=== PATIENT | female | born 1950 | race Caucasian/White ===

== ENCOUNTER 2019-03-17 11:49 | Inpatient (IN) | payer OTHER ==
[~2019-03-17] VITALS: Ht 167.6 cm; Wt 69.4 kg
[2019-03-17 11:59] VITALS: Ht 167.6 cm; Wt 69.4 kg
--- NOTE | 2019-03-17 13:01 | NUR ---
REPORT GIVEN TO SHON MILLER
--- NOTE | 2019-03-17 13:36 | NUR ---
WOUND CULTURE SENT TO LAB.
[2019-03-17 13:38] LABS: BASOPHIL % 0.3 % (0-2); PLATELET COUNT 334 x10^3mcL (130-400); RED CELL DISTRIBUTION WIDTH 13.5 % (11.5-14.5)
[2019-03-17 13:39] LABS: CARBON DIOXIDE 24.5 mmol/L (21-32); CREATININE SERUM 1.1 mg/dL (0.6-1.0); POTASSIUM SERUM 4.5 mmol/L (3.5-5.1)
--- NOTE | 2019-03-17 13:46 | NUR ---
POTOS TAKEN OF WOUND AND PLACED IN CHART.
[2019-03-17 13:49] LABS: BILIRUBIN TOTAL 0.4 mg/dL (0.20-1.00); TOTAL PROTEIN, SERUM 7.7 g/dL (6.4-8.2)
[2019-03-17 14:00] LABS: ALBUMIN 3.2 g/dL (3.4-5.0)
[2019-03-17 14:01] LABS: C REACTIVE PROTEIN 14.6 mg/dL (<=0.9)
--- NOTE | 2019-03-17 14:20 | NUR ---
PT IN GURNEY RESP E/U WITH EYES CLOSED. BLANKET GIVEN FOR COMFORT.
[2019-03-17 14:55] LABS: ERYTHROCYTE SED RATE 74 mm/hr (0-30)
--- NOTE | 2019-03-17 15:22 | NUR ---
RESIDENTS AT BEDSIDE. NOTIFIED THEM BLOOD CULTURES ALREADY HAVE BEEN DRAWN AND IV ABX GIVEN PER ER MD ORDER. PER RESIDENT WANTS BLOOD CULTURES DRAWN STILL.
[2019-03-17 15:29] LABS: MAGNESIUM 1.9 mg/dL (1.8-2.4); PHOSPHOROUS 3.3 mg/dL (2.5-4.9)
[2019-03-17] MEDS ORDERED: ASPIR 8181 MG PO (15:38)
[2019-03-17] MEDS ORDERED: CEPHALEXIN500 MG PO (15:39)
[2019-03-17] MEDS ORDERED: GLIPIZIDE10 M2 PO (15:39)
[2019-03-17] MEDS ORDERED: METFORMIN HYD1000 M2 PO (15:39)
[2019-03-17] MEDS ORDERED: LISINOPRIL10 MG PO (15:39)
--- NOTE | 2019-03-17 15:48 | NUR ---
REPORT GIVEN TO RN GASTON TO ASSUME CARE.
[2019-03-17 17:40] VITALS: BP 112/65
--- NOTE | 2019-03-17 18:00 | NUR ---
PT RESTING IN BED, AOX4, RESP E/U ON RA. DENIES PAIN AT THIS TIME, REQUESTING FOR FOOD, REMINDED PT SHE IS ON NPO FOR POSSIBLE PROCEDURE. PT COMPLIANT W/ INSTRUCTIONS. IV TO LAC W/ NO SIGNS OF INFILTRATION, IVF INFUSING WELL. BED IN LOWEST POSITION AND CALL LIGHT WITHIN REACH. WILL ENDORSE TO ONCOMING NURSE.
--- NOTE | 2019-03-17 19:28 | NUR ---
RECEIVED PT FROM ER. PT AOX4, RESP E/U ON RA, AMBULATORY. DENIES PAIN AT THIS TIME. W/ WOUND TO R FOOT, GAUZE DRESSING IN PLACE SECURED BY DESI ROGERS. VS FOLLOWS: T: 98, HR: 98, RR: 20, BP: 112/65, O2: 95%. IV TO LACE W/ NO ERYTHEMA OR EDEMA, SALINE LOCKED AT THIS TIME. ON NPO DIET. BED IN LOWEST POSITION AND CALL LIGHT WITHIH REACH. WILL CONTINUE TO MONITOR.
--- NOTE | 2019-03-17 20:04 | NUR ---
PATIENT RECEIVED AWAKE, ALERT, ORIENTED X4 IN BED. YAKUT SPEAKING. RESPIRATION EVEN AND UNLABORED, ON ROOM. ONGOING 0.9% NS AT 100 CC/HR INFUSING WELL AT THE LEFT AC. INFECTED RIGHT FOOT WOUND COVERED WITH DRESSING WITH OLD BLOOD. DENIES PAIN AT THIS TIME. VOIDING FREELY WITHOUT DIFFICULTY. AMBULATORY. WILL CONTINUE TO MONITOR.
[2019-03-17 21:28] VITALS: BP 100/54
[2019-03-18 05:21] VITALS: BP 93/50
--- NOTE | 2019-03-18 05:39 | NUR ---
PATIENT DOZING ON AND OFF IN BED. RESPIRATION EVEN AND UNLABORED, ON ROOM AIR. DENIES PAIN AT THIS TIME. IV SITE TO LEFT AC NO SIGN OF INFILTRATION. DRESSING TO RIGHT FOOT COVERED IN PLACED WITH OLD BLOOD. ON NPO. ASSISTED WITH NEEDS. SAFETY OBSERVED. PLACED BED IN THE LOWEST POSITION. PLACED CALL LIGHT WITHIN REACH AT ALL TIMES.
[2019-03-18 06:43] LABS: microscopic required? YES; urine erythrocyte NEGATIVE (NEGATIVE)
[2019-03-18 07:23] LABS: BASOPHIL % 0.1 % (0-2); PLATELET COUNT 278 x10^3mcL (130-400); RED CELL DISTRIBUTION WIDTH 13.5 % (11.5-14.5)
[2019-03-18 07:28] LABS: CALCIUM 8.4 mg/dL (8.5-10.1); CARBON DIOXIDE 27.4 mmol/L (21-32); CREATININE SERUM 1.3 mg/dL (0.6-1.0); POTASSIUM SERUM 4.3 mmol/L (3.5-5.1)
[2019-03-18 09:17] VITALS: BP 96/54
--- NOTE | 2019-03-18 10:28 | NUR ---
AT 0710 - RECEIVED PATIENT FROM NIGHT NURSE. AWAKE, ALERT AND ORIENTED. DENIES ANY PAIN. IV INFUSING NS AT 75 ML/H. NPO FOR POSSIBLE PROCEDURE. AT 0830 - CALL PLACED FOR DR HARDY TO SEE IF PATIENT IS ALLOWED TO EAT. PATIENT C/O HUNGER. AT 0910 - DR DUNBAR AT BEDSIDE FOR DEBRIDEMENT PROCEDURE. SIGNED CONSENT FOR PROCEDURE OBTAINED BY DOCTOR. AT 0915 - DEBRIDEMENT OF R 4TH TOE DONE BY DR DUNBAR AT BEDSIDE. WOUND CULTURE TAKEN. DREESING APPLIED BY DR AND WOUND ORDERS RECEIVED. WOUND CULTURE DELIVERED TO LAB. PATIENT C/O PAIN. MEDICATED WITH NORCO PER EMAR. DIET ORDER RECEIVED. AT 1010 - RESTING QUIETLY. REPORTS THAT PAIN HAS RESOLVED.
--- NOTE | 2019-03-18 13:55 | NUR ---
AT 1330 - RECEIVED CALL FROM LAB WITH VANCOMYCIN THROUGH OF 17. CALLEDPHARMACY AND SPOKE WITH PHARMACIST REGARDING LEVEL. ADMINISTER NEXT DOSE SCHEDULED.
--- NOTE | 2019-03-18 14:35 | NUR ---
AT 1350 - MEDICATED WITH ZOFRAN PER EMAR FOR C/O PERSISTANT NAUSEA AND VOMITING X 1.
[2019-03-18 16:57] VITALS: BP 96/55
--- NOTE | 2019-03-18 19:02 | NUR ---
VSS. AFEBRILE. NO FURTHER C/O NAUSEA OR VOMITING. ABLE TO TOLERATE PO DIET. IV INFUSING NS AT 100 ML/HR. DRESSING TO LEFT FOOT REMAINS DRY AND INTACT. WILL ENDORSE CARE TO NIGHT NURSE.
--- NOTE | 2019-03-18 19:58 | NUR ---
RECEIVED AWAKE IN BED WATCHING TV. , ALERT AND VERBALLY RESPONSIVE. SKIN WARM AND DRY TO TOUCH WITH DEBRIDEMENT RIGHT 4THN TOE WITH DRESSING INTACT , NO ACTIVE BLEEDING NOTED. PAIN LEVEL TOLERABLE AT THIS TIME, PAIN MEDICATION WAS GIVEN BY AM NURSE WITH GOOD EFECT. WILL CONTINUE TO MONITOR.
[2019-03-18 20:21] VITALS: BP 118/61
--- NOTE | 2019-03-18 21:30 | NUR ---
BLOOD TCWVA=639DM/DL, REFUSED HRI COVERAGE PER PROTOCOL, PT STATED SHE WILL NOT TAKE ANY SNACK . ORAL FLUIDS TAEN AND WELL TOLERATED.
--- NOTE | 2019-03-18 21:52 | NUR ---
QAWB=960.6F, ALSO C/O MIILD HEADACHE ON SCALE 3/10, TYLEMOL 650MG PO PRN MEDICATION. COOLING MEASURES RENDERED. WILL REASSESS EFECTIVENESS.
[2019-03-18 23:52] VITALS: BP 100/60
--- NOTE | 2019-03-18 23:52 | NUR ---
TEMP RECHCEK 97.8F. PAIN LEVEL 0/10
--- NOTE | 2019-03-19 01:53 | NUR ---
CONTINUES ON ATB IVPB ORDERED. NO ADVERSE REACTION NOTED FROM ATB THERAPY.
--- NOTE | 2019-03-19 03:05 | NUR ---
C/O HEADACHE ON SCAL 11/02, TYLENOL 650MG PO PRN MEDICATION. ORAL FLUIDS TOLERATED WELL. NO S/S OF DIFFICULTY IN SWALLOWING.
[2019-03-19 05:40] VITALS: BP 96/48
--- NOTE | 2019-03-19 06:15 | NUR ---
BLOOD PWGAM=214EW/DL, REFUSED HRI INSULIN COVERGE. DENIES ANY HEADACHE AT THIS TIME. AMBUALTED TO BATHROOM FOR PERSONAL NEEDS. KEPT CLEAN AND DRY. ALL NEEDS ATTENDED.
[2019-03-19 06:41] LABS: BASOPHIL % 0.3 % (0-2); PLATELET COUNT 244 x10^3mcL (130-400); RED CELL DISTRIBUTION WIDTH 13.4 % (11.5-14.5)
--- NOTE | 2019-03-19 07:10 | NUR ---
REPORT RCD FROM SHON NEIL. PATIENT AWAKE, ALERT, NO DISTRESS. NS 100 ML/HR TO LFA INFUSING WITHOUT COMPLICATIONS. BED LOW, CALL LIGHT WITHIN REACH. WILL MONITOR.
--- NOTE | 2019-03-19 07:40 | NUR ---
SHIFT ASSESSMENT PERFORMED AND DOCUMENTED. PATIENT REPORTS DRESSING CHANGE BY PODIATRY THIS MORNING. DRESSING IS CDI. NURSE WILL NOT REMOVE. PATIENT DENIES PAIN.
--- NOTE | 2019-03-19 08:05 | NUR ---
RCD ORDER FOR URINE CULTURE. CALLED LAB WHO REQUESTED NEW URINE SPECIMEN. PATIENT EDUCATED ON CLEAN CATCH, CLEAN HAT PLACED IN TOILET TO COLLECT URINE. PATIENT TO CALL NURSE AFTER PROVIDING SPECIMEN.
--- NOTE | 2019-03-19 08:21 | NUR ---
WOUND CARE EVALUATION NOT DONE. PT SEEN AND TREATED BY DR. DUNBAR, DIP PAINTER.
--- NOTE | 2019-03-19 09:05 | NUR ---
PATIENT URINATED IN HAT. SPECIMEN COLLECTED BY STUDENTPEE, OBSERVED BY NURSE, AND DELIVED TO LAB.
[2019-03-19 09:22] VITALS: BP 100/61
[2019-03-19 09:59] LABS: CALCIUM 8.4 mg/dL (8.5-10.1); CARBON DIOXIDE 25.9 mmol/L (21-32); CREATININE SERUM 1.3 mg/dL (0.6-1.0); POTASSIUM SERUM 4.1 mmol/L (3.5-5.1)
--- NOTE | 2019-03-19 11:20 | NUR ---
PATIENT SITTING IN CHAIR ON TELEPHONE. DENIES ANY NEEDS AT THIS TIME.
--- NOTE | 2019-03-19 12:50 | NUR ---
PATIENT COMPLAINING OF DISCOMFORT AT LFA IV SITE. SITE FOUND TO BE SWOLLEN, INFILTRATED. IV INFUSION DISCONTINUED IMMEDIATELY.
--- NOTE | 2019-03-19 14:00 | NUR ---
UNABLE TO GIVE ZOSYN AT THIS TIME DUE TO INFILTRATION OF PERIPHERAL IV TO LFA. PATIENT TO HAVE PICC LINE PLACEMENT. WILL ADMINISTER ZOSYN AFTER PICC LINE PLACED.
--- NOTE | 2019-03-19 14:03 | NUR ---
DR. HARDY IN ROOM EXPLAINING PICC LINE PROCEDURE IN BRAZILIAN TO THE PATIENT. SHE AGREED TO PROCEDURE AND SIGNED CONSENT, WITNESSED BY NURSE. IF TO LFA REMOVED DUE TO INFILTRATION PREVIOUSLY NOTED. THERE IS AN AREA OF FULLNESS AT ANTERIOR ELBOW.
--- NOTE | 2019-03-19 14:07 | NUR ---
RECEIVED VANC TROUGH FROM LAB, VALUE 22.3, HIGH. CALLED NADIRA IN PHARMACY TO INFORM. PER NADIRA, DOSE WILL BE RESCHEDULED.
--- NOTE | 2019-03-19 15:18 | NUR ---
PATIENT LYING ON LEFT SIDE, AWAKE, ALERT. NO NEEDS AT THIS TIME.
--- NOTE | 2019-03-19 15:44 | NUR ---
MEDICAL STUDENT AT BEDSIDE DOING DRESSING CHANGE. PATIENT REPORTING FEELING CHILLS, FEELS WARM TO TOUCH. TEMPERATURE TAKEN AND 100.2. COOLING MEASURES STARTED. WILL MONITOR.
--- NOTE | 2019-03-19 15:48 | NUR ---
LEAD JAVA SOFTWARE ENGINEER AT BEDSIDE EVALUATING WOUND. DISCUSSED WITH DOCTOR PATIENT'S TEMPERATURE 100.2. DR. HARDY CALLED TO BEDSIDE AND DISCUSSED NEED FOR AMPUTATION OF RIGHT 4TH TOE. PATIENT REFUSING STATING SHE HAD INFECTION PREVIOUSLY IN ANOTHER TOE WHICH CLEARED WITH ANTIBIOTICS. ASKED DR. HARDY ABOUT WEIGHT BEARING STATUS PATIENT IS AMBULATING. DOCTOR WILL EVALUATE AND WRITE ORDERS APPROPRIATE.
--- NOTE | 2019-03-19 16:09 | NUR ---
POST OP SHOE DELIVERED TO PATIENT'S ROOM. PATIENT AWARE OF SHOE AND INSTRUCTED TO WEAR WHEN AMBULATING. PATIENT AGREED.
--- NOTE | 2019-03-19 16:58 | NUR ---
RECHECKED PATIENT'S TEMPERATURE, 100.2 AT THIS TIME. WILL CONTINUE TO MONITOR.
[2019-03-19 17:05] VITALS: BP 147/69
--- NOTE | 2019-03-19 18:18 | NUR ---
PATIENT SITTING UP EATING DINNER, NO DISTRESS NOTED. NO NEEDS AT THIS TIME. RECEIVED CALL FROM "HERLINDA" PICC LINE NURSE AT 1745 WHO STATED HE WOULD ARRIVE ABOUT 1900 TO INSERT PICC LINE.
--- NOTE | 2019-03-19 19:24 | NUR ---
REPORT GIVEN TO SHON LOVE. PATIENT LYING IN BED, NO DISTRESS. PICC LINE NURSE HERLINDA TO PLACE PICC LINE THIS EVENING. DRESSING TO RIGHT FOOT CDI. NO IV ACCESS AT THIS TIME. CARE ENDORSED.
--- NOTE | 2019-03-19 19:30 | NUR ---
RECIEVED PATIENT AT START OF SHIFT A/O X4. NO SOB ON RA. PATEINT DENIES PAIN. RIGHT FOOT DRESSING IS CDI. PATIENT EDUCATED TO USE POST OP SHOE WHEN AMBULATING. NO IV ACCESS, PATIENT SCHEDULED TO HAVE PICC LINE INSERTED TODAY AT 1900. PICC NURSE HAS NOT ARRIVED YET. SAFETY AND CALL LIGHT REINFORCED. BEDSIDE TABLE WITHIN REACH.
--- NOTE | 2019-03-19 21:30 | NUR ---
HERLINDA PICC LINE NURSE IS AT BEDSIDE TO INSERT PICC LINE ON PATIENT'S RIGHT ARM.
[2019-03-19 22:05] VITALS: BP 124/61
--- NOTE | 2019-03-19 22:45 | NUR ---
XRAY AT BEDSIDE TO CONFIRM PLACEMENT OF PICC LINE.
--- NOTE | 2019-03-19 22:50 | NUR ---
PATIENT HAS FEVER OF 101.9. PATIENT GIVEN TYLENOL AND COOLING MEASURES INITIATED.
[2019-03-20] VITALS (8 sets, daily range): BP systolic 95–131; BP diastolic 54–70
--- NOTE | 2019-03-20 00:01 | NUR ---
PATIENTS TEMP HAS REDUCED TO 99.3.
--- NOTE | 2019-03-20 01:17 | NUR ---
PICC LINE PLACEMENT CONFIRMED, ORDER STATES OKAY TO USE. 0200 DOSE OF ZOSYN GIVEN AT THIS TIME WELL THE 03/19 2100 DOSE OF VANCO. PHARMACY INFORMED OF LATE VANCO ADMINISTRATION, THEY STATED THEY WOULD ADJUST THE SCHEDULE FOR THE MORNING. PATIENT MISSED 2 DOSES OF ZOSYN TOTAL WHILE WAITING FOR IV ACCESS.
[2019-03-20 06:42] LABS: CALCIUM 8.8 mg/dL (8.5-10.1); CARBON DIOXIDE 28.5 mmol/L (21-32); CREATININE SERUM 1.1 mg/dL (0.6-1.0); POTASSIUM SERUM 3.9 mmol/L (3.5-5.1)
[2019-03-20 06:49] LABS: BASOPHIL % 0.3 % (0-2); PLATELET COUNT 265 x10^3mcL (130-400); RED CELL DISTRIBUTION WIDTH 13.3 % (11.5-14.5)
--- NOTE | 2019-03-20 06:55 | NUR ---
PATIENT SLEPT WELL THROUGH THE NIGHT. PICC LINE INFUSING FLUIDS, DRESSING CDI. DRESSINGF TO RIGHT FOOT REMAINS CDI. PATIENT EXPECTED TO BE TRANSFERRED TO [facility] TODAY FOR CORRECTION ANTIBIOTICS. WILL ENDORSE CARE TO DAYSHIFT NURSE.
--- NOTE | 2019-03-20 07:15 | NUR ---
RECEIVED PT FROM BEAM BUILDER. PT AWAKE, ALERT A/OX4. PT ON ROOM AIR WITH NO RESP DISTRESS NOTED. IV ACCESS ENMANUEL PICC C/D/I INFUSING NS AT 100ML/HR. PT HAS BANDAGE TO RIGHT FOOT C/D/I. PT DENIES ANY PAIN. ACTIVE BS NOTED. NO APPARENT ISSUES WITH ELIMINATION AT THIS TIME. PT ABLE TO AMBULATE WITH POST OP SHOE. NO ACUTE DISTRESS NOTED AT THIS TIME. SAFETY MEASURES IN PLACE, BED LOW AND LOCKED. CALL LIGHT WITHIN REACH.
--- NOTE | 2019-03-20 08:30 | NUR ---
PODIATRY SAW PT AT BEDSIDE. PT DRESSING NEW, CDI
--- NOTE | 2019-03-20 10:49 | NUR ---
PT SITTING IN CHAIR AT BEDSIDE. DENIES PAIN AT THIS TIME. ALL NEEDS MET.
--- NOTE | 2019-03-20 13:00 | NUR ---
DUE ANTIBIOTIC ADMINISTERED. PT DENIES ANY PAIN AT THIS TIME. ALL NEEDS MET.
--- NOTE | 2019-03-20 14:45 | NUR ---
PT RESTING COMFORTABLY WITH NO DISTRESS NOTED. IV ABX ADMINISTERED ORDERED. PT ABLE TO MAKE NEEDS KNOWN. CALL LIGHT WITHIN REACH.
--- NOTE | 2019-03-20 14:51 | NUR ---
Initial Nutrition Assessment: (241-A) MARTHA REDDING 68F Dx: Infected diabetic foot PMHx: DM PSHx: None Labs: BG 163 H, Cr 1.1 H, Alb 3.2 L, AST 9 L, A1c 8.7 H Meds: Colace, Humulin, Vancomycin, Zestril, Zofran Diet: CCHO PO intake since admission: 100% Ht: 66in Wt: 153# BMI: 24.7 Bed scale: not working IBW: 130# %IBW: 117% UBW: 123# Age: 68 Food Allergies: NKFA Skin: Slim: 20 Edema: None noted GI: Last BM: 03/17 RD Note (03/20): Noted social media specialist eval not yet done 03/19. Per RN note, pt expected to be transferred to [facility] today for roasterman ABT. Per Podiatry, recommended surgery r/t diabetic food wound, but pt continues to refuse surgery and just be treated w/ ABT. Visited pt bedside, pt states appetite and PO are good, eats everything sent to her. Pt also states no pain in foot at this time. Pt had not received any previous education on eating w/ DM, provided and discussed handout on DM2 nutrtiion therapy w/ pt while pt eating her lunch. Pt states afraid to eat fruit and sweets r/t BG, takes Metformin x2/days, and checks BG x2/day. Pt states does not eat a lot of red meat, but treis to eat more chicken, fish, and turkey. Problem with: N/V/D/C: None Problems with: Chewing: No Swallowing: No Current appetite: Good Recent wt change: None %wt change: None Vitamin/Supplement use: None Special diet at home: Regular Physical activity: N/A Nutrition education given (specify specific nutrition education and handout given): NCM Type 2 Diabetes Nutition Therapy (Turkmen) - went over carbohydrate counting, portion sizes, and sample menu. Food-drug interactions? Education given? NC Tyep 2 Diabetes Nutrition Therapy (Turkmen) Estimated Nutritional Needs Based on current body weight (69.4 kg) Energy: 7837-9680 kcal/day (25-30-35 kcal/kg for maintenance, wound healing) Protein: 83-97 g/day (1.2-1.4 g/kg for wound healing) Fluid: 8692-6709 mL/day (1 mL/kcal) or per MD Nutrition Diagnosis: Food- and nutrition-related knowledge deficit r/t lack of prior nutrition-related education regarding a diabetic diet AEB need for DM2 education and handout. Intervention 1. Contiue current diet order: [facility] Monitor/Evaluate Goal: PO intake at least 75% of estimated needs Monitor: PO intake, Labs, GI function F/U in 3-5 days as moderate risk 03/23-03/25
--- NOTE | 2019-03-20 14:52 | NUR ---
Recommendations: 1. Contiue current diet order: [facility]
[2019-03-20] MEDS ORDERED: AMERINET CHOICE1 G1 IV (15:05)
--- NOTE | 2019-03-20 16:15 | NUR ---
DISCHARGE/TRANSFER/EDUCATION INSTRUCTIONS PROVIDED TO PATIENT. PT VERBALIZES UNDERSTANDING. DISCHARGE PICTURES TAKEN AND PUT IN CHART. PT RIGHT FOOT RE-DRESSED WITH NO ISSUES. C/D/I. PT TOLERATED WELL. PT DENIES PAIN AT THIS TIME.
--- NOTE | 2019-03-20 16:33 | NUR ---
PT BLOOD SUGAR 76, NO S/S OF HYPOGLYCEMIA. PT EDUCATED ON IMPORTANCE OF EATING DINNER. OFFERED JUICE, PT REFUSED. PT VERBALIZES UNDERSTANDING.
--- NOTE | 2019-03-20 18:55 | NUR ---
PT STABLE AT THIS TIME. PT ASKED TO BE TAKEN OFF FLUIDS AT THIS TIME. ALL NEEDS MET THROUGHOUT SHIFT. PT TO BE DISCHARGED. EST EDITORIAL MANAGER TIME AT 2100. WILL CONTINUE TO MONITOR AND ENDORSE TO MEDICAL RESEARCH TECH.
--- NOTE | 2019-03-20 19:09 | NUR ---
CALLED ABHI RUEDA, GAVE REPORT TO RADHA. ESTIMATED LEVEL VIAL SEALER TIME 2099.
--- NOTE | 2019-03-20 19:15 | NUR ---
CARE ASSUMED FROM OUTGOING RN. PT RESTING COMFORTABLY IN BED. NO ACUTE DISTRESS NOTED. EVEN AND UNLABORED RESPIRATIONS ON RA. PICC LINE TO ENMANUEL INTACT, DRESSING CDI. DENIES ANY PAIN AT THIS TIME. POST OP SHOE IN PLACE TO RIGHT FOOT, DRESSING CDI. DAY SHIFT RN CALLED REPORT ABHI RUEDA. PT AWAITING FOR DELIMBER OPERATOR, ETA 2100. BED IN LOWEST POSITION. SIDE RAILS UPX2. WILL CONTINUE TO MONITOR.
--- NOTE | 2019-03-20 21:00 | NUR ---
[facility] CALLED STATING ETA WILL BE DELAYED FOR 2 HOURS. PT MADE AWARE. WILL ADMINISTER ORDERED MEDICATIONS PER EMAR. WILL CONTINUE TO MONITOR.
--- NOTE | 2019-03-20 22:57 | NUR ---
ENDORSED CARE TO MARTY MENENDEZ. PT RESTING COMFORTABLY IN BED. NO ACUTE DISTRESS NOTED. STILL AWAITING FOR [facility].
--- NOTE | 2019-03-20 23:05 | NUR ---
RECEIVED PATIENT FROM JOSE ENRIQUE MENENDEZ FOR CONTINUATION OF CARE. PATIENT SITTING ON THE CHAIR WAITING FOR TRANSPORTATION. PATIENT RESPIRATION EVEN AND UNLABORED, ON ROOM AIR. DENIES PAIN AT THIS TIME. WILL CONTINUE TO MONITOR.
--- NOTE | 2019-03-21 00:45 | NUR ---
KEATON DISCHARGED TO [facility] IN STABLE CONDITION. RESPIRATION EVEN AND UNLABORED. DISCHARGE INSTRUCTION EXPLAINED BY JOSE ENRIQUE MENENDEZ. DISCHARGE PACKET GIVEN TO [facility].
== END 2019-03-21 00:45 | DRG 853 ==
LOC: ED 11:49 → MU 15:08 → ED 16:01 → MU 16:30
PROVIDERS: Emergency Medicine; ADMIT General Practice
PROC: 0JBQ0ZZ Excision of Right Foot Subcutaneous Tissue and Fascia, Open Approach (ICD-10-PCS; principal; 2019-03-17)
PROC: 0JBQ0ZZ Excision of Right Foot Subcutaneous Tissue and Fascia, Open Approach (ICD-10-PCS; 2019-03-18)
DX: A41.9 Sepsis, unspecified organism (principal); N17.0 Acute kidney failure with tubular necrosis; M86.9 Osteomyelitis, unspecified; E44.0 Moderate protein-calorie malnutrition; E11.621 Type 2 diabetes mellitus with foot ulcer; L97.519 Non-pressure chronic ulcer of other part of right foot with unspecified severity; B95.2 Enterococcus as the cause of diseases classified elsewhere; E11.65 Type 2 diabetes mellitus with hyperglycemia; E11.42 Type 2 diabetes mellitus with diabetic polyneuropathy; E11.69 Type 2 diabetes mellitus with other specified complication; I10 Essential (primary) hypertension; Z68.24 Body mass index [BMI] 24.0-24.9, adult; Z79.84 Long term (current) use of oral hypoglycemic drugs; Z79.82 Long term (current) use of aspirin; Z53.29 Procedure and treatment not carried out because of patient's decision for other reasons
CPT/HCPCS: 82962; C1751; G0378; J2405; J2543; J3370; J7030; Q0092